=== PATIENT | female | born 1980 | race African-American/Black ===

== ENCOUNTER 2020-09-24 17:02 | Emergency (ER) | payer OTHER, SELFPAY ==
[2020-09-24 17:04] VITALS: BP 149/99; PULSE 67; RESP 18; TEMP 36.1; O2SAT 100; BMI 34.2
--- NOTE | 2020-09-24 17:41 | CT_ITS ---
STUDY: CT ABDOMEN AND PELVIS WITHOUT CONTRAST REASON FOR EXAM: Female, 40 years old. Kidney Stone/pain RADIATION DOSAGE (If Supplied By Facility): CTDIvol = ( 16.67 ) mGy, DLP = ( 824.63 ) mGycm TECHNIQUE: Transaxial images were obtained from the dome of the diaphragm to the symphysis pubis without oral contrast, and without intravenous contrast. Sagittal and coronal images were reconstructed. Individualized dose optimization techniques were used for this CT. COMPARISON: None. FINDINGS: The visualized lung bases are unremarkable. The visualized portions of the heart are within normal limits. Normal liver. There are surgical clips in the gallbladder fossa consistent with a prior cholecystectomy. Normal spleen. Normal pancreas. Normal bilateral adrenal glands. Normal right kidney. Normal left kidney. Postoperative changes of the stomach status post bypass surgery. Normal small intestine. Normal stool-filled colon. The appendix is visualized and appears normal. Normal abdominal aorta. Normal inferior vena cava. Normal retroperitoneum. Normal urinary bladder. Negative for pelvic mass or free fluid of the pelvis. Normal abdominal wall. Normal osseous structures. CT/Abdomen/Pelvis without Cont IMPRESSION: Normal size of the kidneys bilaterally without hydronephrosis or renal stones. Negative for a definitive renal stone. Numerous pelvic phleboliths, none of which appear to be ureteral stones. Unremarkable urinary bladder. Negative for pelvic mass. Unremarkable liver, spleen and pancreas status post cholecystectomy. Negative for evidence of bowel obstruction, perforation or inflammatory bowel changes status post gastric bypass. A normal appendix is identified. Electronically Signed: Brook Roberts MD at 19:32 EDT , Service support ,
[2020-09-24 17:56] LABS: Bacteria 0 SEEN /hpf (None Seen); Red Blood Cells-Urine 0 SEEN /hpf (0-5)
[2020-09-24] MEDS: Ondansetron 4 MG/2 ML Vial IV (17:58)
[2020-09-24] MEDS: Ketorolac 30 MG/ML Syringe IV (17:58)
[2020-09-24 18:02] LABS: Color, Urine Yellow (Yellow); Glucose, Dipstick Normal (Normal); Ketone-Dipstick 15 mg/dl (Negative); Leukocyte Esterase-Dipstick 25 /ul (Negative); Nitrite-Dipstick Negative (Negative); Occult Blood-Urine Negative /ul (Negative); Protein-Dipstick 15 mg/dl (Negative); Specific Gravity, Urine 1.025 (1.002-1.030); Urine Bilirubin Dipstick Negative (Negative); Urine Clarity Clear (Clear); Urine Urobilinogen 1 mg/dl (Normal)
[2020-09-24 18:03] LABS: Absolute Lymphocyte Count 3.31 X10^3/uL (0.83-4.51); Absolute Neutrophil Count 3.2 X10^3/uL (2.0-7.7); Basophil# 0.03 X10^3/uL; Basophil% 0.4 % (0-1); Eosinophil# 0.24 X10^3/uL; Eosinophils% 3.3 % (0-5); Hematocrit 39.6 % (37-47); Lymphocyte # 3.31 X10^3/ul (4.0); Lymphocyte % 45.7 % (19-41); Mean Corp Hgb Conc 30.3 g/dL (32-36); Mean Corpuscular Hgb 21.7 pg (27.0-32.0); Mean Corpuscular Volume 71.7 fL (81-99); Mean Platelet Vol. 11.1 fl (6.2-12.0); Monocyte# 0.43 X10^3/uL; Monocyte% 5.9 % (0-10); NRBC Flagged by Analyzer 0 % (0-5); Neutrophil # 3.23 X10^3/uL (2.7-7.7); Neutrophil % 44.6 % (47-70); Platelet Count 279 K/mm3 (150-450); RBC Distribution Width SD 43.1 fl (35.1-43.9); Red Blood Count 5.52 M/mm3 (4.2-5.4); White Blood Count 7.3 K/mm3 (4.4-11.0)
[2020-09-24 18:09] LABS: Squamous Epithelial Cells - UA 5-10 SEEN /hpf (5-10); White Blood Cells 0-5 SEEN /hpf (0-5)
[2020-09-24 18:10] LABS: Mucous, Urine 3+ /hpf (<or=2+)
[2020-09-24 18:13] LABS: Anion Gap 7 (5-15); BUN 14 mg/dL (7-18); Calcium,Total 9.4 mg/dL (8.5-10.1); Chloride 103 mmol/L (98-107); Creatinine, Serum 0.78 mg/dL (0.55-1.02); EST Glomerular Filtration Rate 87 mL/min (>60); Est Glom Filt Rate - Afr Amer 105 mL/min (>60); Estimated Creatinine Clearance 79.31 ml/min; Glucose 80 mg/dL (74-106); Potassium 3.7 mmol/L (3.5-5.1); Sodium Level 139 mmol/L (136-145)
[2020-09-24 18:21] LABS: Internal QC Validated? YES +Cl - CLEAR BKGD
[2020-09-24 18:22] LABS: Pregnancy, Serum, hCG Quali. NEGATIVE Negative
--- NOTE | 2020-09-24 18:28 | ED.DCSUM_ITS ---
History of Present Illness Chief Complaint: Abd Pain Informant: Patient Onset: Today Context: Sudden Onset Timing: Continuous Current Severity: Moderate Maximum Severity: Moderate Narrative: The patient is a 40-year-old female with medical history significant for prior gastric bypass surgery, ovarian cyst, kidney stone who presents to the emergency department right lower quadrant pain. The patient states she has been having similar pain off and on for a few months. She states today however, it came on acutely about 2 hours ago. She states it was worse with movement and coughing. She was also mildly nauseated. She denies any vomiting. She denies dysuria. The pain does not radiate. She states she cannot recreated on exam. Prior similar symptoms: No Recent Illness/Hospitalization: No Past Medical History - Allergies and Home Meds Allergies/Adverse Reactions: Allergies prochlorperazine [From Compazine] Adverse Reaction (Verified 09/24/20 17:07) Other FELT LIKE NEEDLES STABBING ME Primary Care Physician: Ajit Sharif MD [Primary Care Provider] - Prior records reviewed: Yes Past Medical History: - - History of ovarian cyst and kidney stone Surgical History: - - Prior gastric bypass surgery Review of Systems General: Denies: Chills, Fever, Sweats Eyes: Denies: Visual changes - bilaterally, Diplopia ENT: Denies: Rhinorrhea, Sore throat Cardiovascular: Denies: Chest pain, Palpitations Respiratory: Denies: Dyspnea, Cough, Dyspnea on exertion Gastrointestinal: Reports: Abdominal pain. Denies: Nausea, Vomiting, Diarrhea, Melena, Hematochezia Genitourinary: Denies: Dysuria, Hematuria, Frequency Musculoskeletal: Denies: Back pain, Extremity Pain Skin: Denies: Rash, Wounds Neurological: Denies: Headache, Weakness, Numbness Physical Exam Vital Signs/Narrative: Vital Signs Temp Pulse Resp BP Pulse Ox 09/24/20 17:04 97 F L 67 18 149/99 H 100 Inital Vital Signs reviewed: Yes General: Well nourished, Well developed, No Acute Distress Head: Normocephalic, Atraumatic Eyes: Perrl, EOMI ENT: Moist mucous membranes, No rhinorrhea Neck: Supple, Nontender Cardiovascular: Regular rate, Regular rhythm, No murmurs Respiratory: No distress, CTA bilaterally, Chest nontender Abdomen: Soft, Nontender, Nondistended, Normal bowel sounds Back: Nontender, Normal Inspection Extremities: Nontender, No edema Skin: Normal color, No rash Neurological: Alert, Oriented x3, Cranial nerves II-XII grossly intact, Normal Strength, Normal Sensation Psychological: Normal affect, Normal Mood Diagnostic/Tx/Re-eval Clinical Impression(s) from Imaging Studies Abdomen/Pelvis CT 09/24/20 17:41 IMPRESSION: Normal size of the kidneys bilaterally without hydronephrosis or renal stones. Negative for a definitive renal stone. Numerous pelvic phleboliths, none of which appear to be ureteral stones. Unremarkable urinary bladder. Negative for pelvic mass. Unremarkable liver, spleen and pancreas status post cholecystectomy. Negative for evidence of bowel obstruction, perforation or inflammatory bowel changes status post gastric bypass. A normal appendix is identified. Electronically Signed: Brook Robrets MD at 19:32 EDT , Service support , Abnormal Lab Results 09/24/20 09/24/20 09/24/20 17:45 17:45 17:45 WBC 7.3 RBC 5.52 H Hgb 12.0 Hct 39.6 MCV 71.7 L MCH 21.7 L MCHC 30.3 L RDW Std Deviation 43.1 RDW Coeff of Letitia 17.0 H Plt Count 279 MPV 11.1 Immature Gran % (Auto) 0.100 Neut % (Auto) 44.6 L Lymph % (Auto) 45.7 H [place] % (Auto) 5.9 Eos % (Auto) 3.3 Baso % (Auto) 0.4 Absolute Neuts (auto) 3.2 Absolute Lymphs (auto) 3.31 Nucleated RBC % 0 Sodium 139 Potassium 3.7 Chloride 103 Carbon Dioxide 29.0 Anion Gap 7 BUN 14 Creatinine 0.78 Estim Creat Clear Calc 79.31 Est GFR (MDRD) Af Amer 105 Est GFR (MDRD) Non-Af 87 BUN/Creatinine Ratio 18.0 Glucose 80 Calcium 9.4 Serum , Qual NEGATIVE Urine Color Urine Clarity Urine pH Ur Specific [place] Urine Protein Urine Glucose (UA) Urine Ketones Urine Occult Blood Urine Nitrite Urine Bilirubin Urine Urobilinogen Ur Leukocyte Esterase Urine RBC Urine WBC Ur Squamous Epith Cells Urine Bacteria Urine Mucus 09/24/20 17:45 WBC RBC Hgb Hct MCV MCH MCHC RDW Std Deviation RDW Coeff of Letitia Plt Count MPV Immature Gran % (Auto) Neut % (Auto) Lymph % (Auto) [place] % (Auto) Eos % (Auto) Baso % (Auto) Absolute Neuts (auto) Absolute Lymphs (auto) Nucleated RBC % Sodium Potassium Chloride Carbon Dioxide Anion Gap BUN Creatinine Estim Creat Clear Calc Est GFR (MDRD) Af Amer Est GFR (MDRD) Non-Af BUN/Creatinine Ratio Glucose Calcium Serum , Qual Urine Color Yellow Urine Clarity Clear Urine pH 5.0 Ur Specific [place] 1.025 Urine Protein 15 H Urine Glucose (UA) Normal Urine Ketones 15 H Urine Occult Blood Negative Urine Nitrite Negative Urine Bilirubin Negative Urine Urobilinogen 1 H Ur Leukocyte Esterase 25 H Urine RBC 0 SEEN Urine WBC 0-5 SEEN Ur Squamous Epith Cells 5-10 SEEN Urine Bacteria 0 SEEN Urine Mucus 3+ - Medical Decision Making I cannot recreate the patient's pain on examination. Clinically, this does seem most likely renal colic. IV was established. Patient was given fluids, Zofran, Toradol. On reevaluation she is pain-free. Labs are unremarkable. Urine does not show evidence of infection. Noncontrast CT was obtained. There is multiple calcifications in the pelvis, but unable to determine if there is actually a true renal stone. If there is, it is 2 mm or less. On reevaluation, the patient is resting comfortably. I will treat her clinically like this is a stone. She is comfortable with this plan of care and will be discharged home. Impression 1. Renal colic ED Disposition - Plan for ED Patient: Instructions: ED Kidney Stone w/ Colic Prescriptions: Hydrocodone Bitart/Apap 5-325 [[place] 5MG-325MG] 1 tablet PO Q6H PRN PRN 3 Days #10 tablet PRN Reason: Pain Prescription Printed Ondansetron [Zofran Odt] 4 mg PO Q8H PRN PRN #10 tablet PRN Reason: Nausea Prescription Printed Referrals: Ajit Sharif MD [Primary Care Provider] -
[2020-09-24] MEDS: 0.9% Normal Saline 1,000 ML 250 ML IV (18:40)
[2020-09-24 19:09] VITALS: BP 157/100; PULSE 59; RESP 16; O2SAT 97
[2020-09-24 19:12] VITALS: BP 157/100; PULSE 59; RESP 16; TEMP 36.9; O2SAT 97
[2020-09-24 19:47] VITALS: BP 157/100; PULSE 59; RESP 16
== END 2020-09-24 20:00 | disposition home or self-care (01) ==
LOC: ED 18:04
PROVIDERS: Emergency Provider Emergency Medicine; PCP Internal Medicine
DX: N23 Unspecified renal colic (principal); Z90.49 Acquired absence of other specified parts of digestive tract; Z98.84 Bariatric surgery status; Z87.442 Personal history of urinary calculi
CPT/HCPCS: 74176; 80048; 81001; 84703; 85025; 96361; 96374; 96375; 99282; J7030; A4216; J2405